=== PATIENT | female | born 1990 | race African-American/Black ===

== ENCOUNTER 2017-11-05 07:44 | Inpatient (IN) | payer OTHER ==
[~2017-11-05] VITALS: Ht 162.6 cm; Wt 92.5 kg
[2017-11-05] MEDS ORDERED: 0.9 % SODIUM CHLORIDE 10 ML DISP.SYRIN. IV PRN ×3 (08:15→19:00)
[2017-11-05] MEDS ORDERED: CITRIC ACID/SODIUM CITRATE 30 ML SOLUTION. PO PRN ×2 (08:15→10:30)
[2017-11-05] MEDS ORDERED: BUTORPHANOL 2 MG/ML VIAL. IV PRN ×2 (08:15)
[2017-11-05] MEDS ORDERED: MAG HYDROX/ALUMINUM HYD/SIMETH 30 ML ORAL.SUSP PO PRN ×4 (08:15→19:00)
[2017-11-05] MEDS ORDERED: TERBUTALINE 1 MG/ML VIAL. SQ PRN (08:15)
[2017-11-05] MEDS ORDERED: OXYTOCIN 30 UNIT/500 ML PREMIX 500 ML IV PRN ×4 (08:15→19:00)
[2017-11-05] MEDS: CLINDAMYCIN 900MG PREMIX 50 ML IV SCH ×2 (08:50→16:50)
[2017-11-05] MEDS: IV RINGERS,LACTATED 1000ML 1,000 ML IV SCH ×3 (08:50→19:54)
[2017-11-05 09:06] LABS: BASO % 1 % (0-3); EOS # 0.1 x10^3/uL (0.0-0.7); EOS % 1 % (0-3); HEMATOCRIT 37.8 % (36.0-47.0); LYMPH # 1.9 x10^3/uL (1.0-4.8); LYMPH % 23 % (24-48); MEAN CORPUSCULAR HEMOGLOBIN 31 pg (25-35); MEAN CORPUSCULAR HGB CONC 34 g/dL (31-37); MEAN CORPUSCULAR VOLUME 89 fL (79-100); MONO # 0.7 x10^3/uL (0.0-1.1); MONO % 8 % (0-9); NEUT # 5.8 x10^3uL (1.8-7.7); NEUT % 68 % (31-73); PLATELET COUNT 259 x10^3/uL (140-400); RED BLOOD COUNT 4.25 x10^6/uL (3.50-5.40); RED CELL DISTRIBUTION WIDTH 15.6 % (11.5-14.5); WHITE BLOOD COUNT 8.5 x10^3/uL (4.0-11.0)
--- NOTE | 2017-11-05 09:18 | PDOC1 ---
OB - History Hx of Present Care: Good Care Ultrasounds: Normal mid trimester US Obstetrical Complications: None Medical Complications: None Past Family/Social History * Past Medical, Surgical, Family and Obstetric Histories reviewed from chart. Rubella: Immune RPR/VDRL: Negative GBS Status: Positive HBsAG: Negative OB - Chief Complaint & HPI Date of Admission: Date of Admission: Nov 05, 2017 at 07:44 Chief Complaint/History : 3 Para: 2 EGA: 39 Reason for admission: induction of labor Admission Nurse Assessment Rev: Yes OB - Admission Exam Physical Exam HEENT: Normal Heart: Regular Rate Lungs: Clear, Equal Abdomen: Gravid, Non tender, Soft Extremities: Edema Reflexes: Normal Cervical Dilatation: 4cm Effacement: 75% Station: -3 Membranes: Intact Heart Rate: Normal Accelerations: Accelerations Present Decelerations: No decelerations Contractions on Admission: < 5 Minutes Apart Intensity: Moderate Text A: 39 wks IOL ACD GBS positive Trich and Chlamydia P: Admit IOL Pitocin and Pen G. Will treat Trich and Chlamydia. EDI WELSH Jr, MD Nov 05, 2017 09:18
[2017-11-05] MEDS ORDERED: ONDANSETRON PF 4 MG/2 ML VIAL. ONE (09:49)
[2017-11-05] MEDS ORDERED: metroNIDAZOLE 500 MG TABLET PO ONE (10:00)
[2017-11-05] MEDS ORDERED: AZITHROMYCIN 250 MG TABLET. PO ONE (10:00)
[2017-11-05] MEDS ORDERED: ONDANSETRON PF 4 MG/2 ML VIAL. IV PRN (10:30)
[2017-11-05] MEDS ORDERED: ACETAMINOPHEN 325 MG TABLET. PO PRN ×3 (10:30→19:00)
[2017-11-05] MEDS: fentaNYL PF VIAL 100 MCG/2 ML VIAL IV PRN ×3 (17:17→19:03)
[2017-11-05] MEDS ORDERED: PHENYLEPH/MINERAL OIL/PETROLAT RECTAL OINTMENT 28GM TUBE. RC PRN ×2 (19:00)
[2017-11-05] MEDS ORDERED: HYDROCORTISONE 1% TOPICAL OINTMENT 30GM TUBE. TP PRN ×2 (19:00)
[2017-11-05] MEDS ORDERED: ZOLPIDEM 5 MG TABLET. PO PRN ×2 (19:00)
[2017-11-05] MEDS ORDERED: IBUPROFEN 800 MG TABLET. PO SCH (19:00)
[2017-11-05] MEDS ORDERED: SIMETHICONE 80 MG TAB.CHEW PO PRN ×2 (19:00)
[2017-11-05] MEDS ORDERED: BENZOCAINE 20% TOPICAL AEROSOL SPRAY 57GM CAN. TP PRN ×2 (19:00)
[2017-11-05] MEDS ORDERED: MAGNESIUM HYDROXIDE 2,400 MG/30 ML ORAL.SUSP. PO PRN ×2 (19:00)
[2017-11-05] MEDS ORDERED: diphenhydrAMINE HCL 25 MG CAPSULE PO PRN ×2 (19:00)
[2017-11-05] MEDS ORDERED: miSOPROStol 200MCG TAB 200 MCG TABLET PR ONE (19:30)
--- NOTE | 2017-11-05 19:45 | PDOC ---
VAGINAL DELIVERY DATE DATE: 11/05/17 TIME: 19:42 : 3 Para: 2 VAGINAL DELIVERY: BREECH VACCUM ASSISTED: No PLACENTA: Spontaneous SEX: Female WEIGHT 7# Nuchal Cord: No Amniotic Fluid: Clear PAIN: Local EPISIOTOMY: No EBL 300cc COMPLICATIONS None CONDITION Stable Signs of Intrauterine Infectio: None Shoulder Dystocia: No DIAGNOSIS MY Delgadillo MD Nov 05, 2017 19:45
[2017-11-05] MEDS: LIDOCAINE 1% PF 30 ML VIAL. INJ PRN (19:54)
[2017-11-05 22:15] VITALS: BP 115/71
[2017-11-06] MEDS: IBUPROFEN 800 MG TABLET. PO PRN ×2 (00:58→15:46)
[2017-11-06 04:30] VITALS: BP 116/79
[2017-11-06] MEDS: IV RINGERS,LACTATED 1000ML 1,000 ML IV SCH (06:09)
[2017-11-06] MEDS: LIDOCAINE 1% PF 30 ML VIAL. INJ PRN (06:41)
[2017-11-06] MEDS ORDERED: FERROUS SULFATE 325 MG TABLET. PO SCH ×2 (08:00)
[2017-11-06 11:30] VITALS: BP 118/78
--- NOTE | 2017-11-06 15:53 | PDOC ---
OB Progress Note Date of Service 11/06/17 Time of Evaluation 1550 Notes Pt. feeling well. No complaints. Lab Laboratory Tests Test 11/05/17 08:40 11/06/17 04:00 White Blood Count 8.5 x10^3/uL (4.0-11.0) Red Blood Count 4.25 x10^6/uL (3.50-5.40) Hemoglobin 13.0 g/dL (12.0-15.5) Hematocrit 37.8 % (36.0-47.0) 37.3 % (36.0-47.0) Mean Corpuscular Volume 89 fL (79-100) Mean Corpuscular Hemoglobin 31 pg (25-35) Mean Corpuscular Hemoglobin Concent 34 g/dL (31-37) Red Cell Distribution Width 15.6 % (11.5-14.5) Platelet Count 259 x10^3/uL (140-400) Neutrophils (%) (Auto) 68 % (31-73) Lymphocytes (%) (Auto) 23 % (24-48) Monocytes (%) (Auto) 8 % (0-9) Eosinophils (%) (Auto) 1 % (0-3) Basophils (%) (Auto) 1 % (0-3) Neutrophils # (Auto) 5.8 x10^3uL (1.8-7.7) Lymphocytes # (Auto) 1.9 x10^3/uL (1.0-4.8) Monocytes # (Auto) 0.7 x10^3/uL (0.0-1.1) Eosinophils # (Auto) 0.1 x10^3/uL (0.0-0.7) Basophils # (Auto) 0.0 x10^3/uL (0.0-0.2) Treponema pallidum Antibody Nonreactive (Nonreactive) Laboratory Tests Test 11/06/17 04:00 Hematocrit 37.3 % (36.0-47.0) Medications Current Medications Sodium Chloride (Normal Saline Flush) 3 ml QSHIFT PRN IV AFTER MEDS AND BLOOD DRAWS; Start 11/05/17 at 08:15; Stop 11/06/17 at 08:56; Status DC Ringer's Solution 1,000 ml @ 125 mls/hr Q8H IV Last administered on 11/05/17at 19:54; Start 11/05/17 at 08:30; Stop 11/06/17 at 06:34; Status DC Butorphanol Tartrate (Stadol) 1 mg PRN Q1HR PRN IV mild to moderate labor pain Last administered on 11/05/17at 15:23; Start 11/05/17 at 08:15; Stop 11/06/17 at 08:56; Status DC Butorphanol Tartrate (Stadol) 2 mg PRN Q1HR PRN IV Severe labor pain; Start at 08:15; Stop 11/06/17 at 08:56; Status DC Al Hydroxide/Mg Hydroxide (Mylanta Plus Xs) 30 ml PRN Q4HRS PRN PO HEARTBURN / GAS; Start 11/05/17 at 08:15; Status Cancel Citric Acid/ Sodium Citrate (Bicitra) 30 ml 1X PRN PRN PO DYSPEPSIA; Start at 08:15; Stop 11/06/17 at 08:14; Status Cancel Terbutaline Sulfate (Brethine) 0.25 mg 1X PRN PRN SQ SEE COMMENTS; Start at 08:15; Stop 11/06/17 at 08:14; Status DC Lidocaine HCl (Xylocaine 1% Pf 30ml Vial) 30 ml 1X PRN PRN INJ SEE COMMENTS Last administered on 11/05/17at 19:54; Start 11/05/17 at 08:15; Stop 11/06/17 at 08:56; Status DC Oxytocin/Sodium Chloride 500 ml @ 0 mls/hr CONT PRN IV SEE I/O RECORD Last administered on 11/05/17at 09:22; Start 11/05/17 at 08:15; Stop 11/06/17 at 08:56 ; Status DC Oxytocin/Sodium Chloride 500 ml @ 0 mls/hr CONT PRN PRN IV Post delivery bleeding; Start 11/05/17 at 08:15; Status Cancel Clindamycin Phosphate 50 ml @ 100 mls/hr Q8H IV Last administered on at 16:50; Start 11/05/17 at 09:00; Stop 11/05/17 at 23:57; Status DC Azithromycin (Zithromax) 1,000 mg 1X ONCE PO Last administered on 11/05/17at 09 :47; Start 11/05/17 at 10:00; Stop 11/06/17 at 08:56; Status DC Metronidazole (Flagyl) 2,000 mg 1X ONCE PO Last administered on 11/05/17at 10: 55; Start 11/05/17 at 10:00; Stop 11/06/17 at 08:56; Status DC Ondansetron HCl (Zofran) 4 mg STK-MED ONCE .ROUTE ; Start 11/05/17 at 09:49; Stop 11/06/17 at 08:56; Status DC Acetaminophen (Tylenol) 650 mg PRN Q6HRS PRN PO MILD PAIN / TEMP; Start at 10:30; Status Cancel Ondansetron HCl (Zofran) 4 mg PRN Q4HRS PRN IV NAUSEA/VOMITING Last administered on 11/05/17at 18:07; Start 11/05/17 at 10:30; Stop 11/06/17 at 08:56 ; Status DC Al Hydroxide/Mg Hydroxide (Mylanta Plus Xs) 30 ml PRN Q4HRS PRN PO HEARTBURN / GAS; Start 11/05/17 at 10:30; Status UNV Citric Acid/ Sodium Citrate (Bicitra) 30 ml 1X PRN PRN PO DYSPEPSIA; Start at 10:30; Stop 11/06/17 at 08:56; Status DC Fentanyl Citrate (Fentanyl 2ml Vial) 100 mcg PRN Q30MIN PRN IV PAIN Last administered on 11/05/17at 19:03; Start 11/05/17 at 17:15; Stop 11/06/17 at 08:56 ; Status DC Sodium Chloride (Normal Saline Flush) 10 ml QSHIFT PRN IV AFTER MEDS AND BLOOD DRAWS; Start 11/05/17 at 19:00; Status UNV Oxytocin/Sodium Chloride 500 ml @ 62.5 mls/hr CONT PRN IV SEE I/O RECORD; Start 11/05/17 at 19:00; Stop 11/06/17 at 02:59; Status UNV Acetaminophen (Tylenol) 650 mg PRN Q6HRS PRN PO MILD PAIN / TEMP; Start at 19:00; Status UNV Ibuprofen (Motrin) 800 mg PRN Q8HRS PRN PO INFLAMMATION Last administered on at 15:46; Start 11/05/17 at 19:00 Magnesium Hydroxide (Milk Of Magnesia) 2,400 mg PRN DAILY PRN PO CONSTIPATION; Start 11/05/17 at 19:00; Status UNV Al Hydroxide/Mg Hydroxide (Mylanta Plus Xs) 30 ml PRN Q4HRS PRN PO HEARTBURN / GAS; Start 11/05/17 at 19:00; Status UNV Simethicone (Gas-X) 80 mg PRN AFTMEALHC PRN PO GAS / BLOATING; Start 11/05/17 at 19:00; Status UNV Diphenhydramine HCl (Benadryl) 25 mg PRN Q6HRS PRN PO ITCHING; Start 11/05/17 at 19:00; Status UNV Benzocaine (Americaine) 1 spray PRN QID PRN TP TOPICAL PAIN; Start 11/05/17 at 19:00; Status UNV Phenyleph/Shark Oil/Min Oil/Petrol (Preparation H) 1 yann PRN QID PRN RC RECTAL PAIN; Start 11/05/17 at 19:00; Status UNV Hydrocortisone (Cortaid) 1 yann PRN QID PRN TP PERINEAL PAIN; Start 11/05/17 at 19:00; Status UNV Ferrous Sulfate (Feosol) 325 mg BIDWMEALS PO ; Start 11/06/17 at 08:00; Status UNV Zolpidem Tartrate (Ambien) 5 mg PRN QHS PRN PO INSOMNIA, MAY REPEAT X1; Start 11/05/17 at 19:00; Status UNV Info (Do NOT chart on this placeholder) 1 ea 1X PRN PRN MC SEE COMMENTS; Start 11/05/17 at 19:00; Status UNV Sodium Chloride (Normal Saline Flush) 10 ml QSHIFT PRN IV AFTER MEDS AND BLOOD DRAWS; Start 11/05/17 at 19:00; Stop 11/06/17 at 08:56; Status DC Oxytocin/Sodium Chloride 500 ml @ 62.5 mls/hr CONT PRN IV SEE I/O RECORD; Start 11/05/17 at 19:00; Stop 11/06/17 at 02:59; Status DC Acetaminophen (Tylenol) 650 mg PRN Q6HRS PRN PO MILD PAIN / TEMP Last administered on 11/06/17at 06:13; Start 11/05/17 at 19:00 Ibuprofen (Motrin) 800 mg PRN Q8HRS PO ; Start 11/05/17 at 19:00; Status UNV Magnesium Hydroxide (Milk Of Magnesia) 2,400 mg PRN DAILY PRN PO CONSTIPATION; Start 11/05/17 at 19:00 Al Hydroxide/Mg Hydroxide (Mylanta Plus Xs) 30 ml PRN Q4HRS PRN PO HEARTBURN / GAS; Start 11/05/17 at 19:00 Simethicone (Gas-X) 80 mg PRN AFTMEALHC PRN PO GAS / BLOATING; Start 11/05/17 at 19:00 Diphenhydramine HCl (Benadryl) 25 mg PRN Q6HRS PRN PO ITCHING; Start 11/05/17 at 19:00 Benzocaine (Americaine) 1 spray PRN QID PRN TP TOPICAL PAIN; Start 11/05/17 at 19:00 Phenyleph/Shark Oil/Min Oil/Petrol (Preparation H) 1 yann PRN QID PRN RC RECTAL PAIN; Start 11/05/17 at 19:00 Hydrocortisone (Cortaid) 1 yann PRN QID PRN TP PERINEAL PAIN; Start 11/05/17 at 19:00 Ferrous Sulfate (Feosol) 325 mg BIDWMEALS PO ; Start 11/06/17 at 08:00; Stop at 08:00; Status DC Zolpidem Tartrate (Ambien) 5 mg PRN QHS PRN PO INSOMNIA, MAY REPEAT X1; Start 11/05/17 at 19:00 Info (Do NOT chart on this placeholder) 1 ea 1X PRN PRN MC SEE COMMENTS; Start 11/05/17 at 19:00 Misoprostol (Cytotec 200mcg Tab) 800 mcg 1X ONCE [place] ; Start 11/05/17 at 19:30; Stop 11/06/17 at 08:56; Status DC Exam Abd: soft, non tender, fundus firm Assessment PPD#1 s/p Plan of Care: Continue current Tx, Mgmt EDI WELSH Jr, MD Nov 06, 2017 15:53
[2017-11-06 19:20] VITALS: BP 117/72
[2017-11-07 02:15] VITALS: BP 131/73
[2017-11-07] MEDS: IBUPROFEN 800 MG TABLET. PO PRN (04:59)
--- NOTE | 2017-11-07 06:47 | PDOC3 ---
OB DISCHARGE SUMMARY DATE OF ADMISSION: 11/05/17 DATE OF DISCHARGE: 11/07/17 REASON FOR ADMISSION: Induction of labor PROCEDURES: Ultrasound INTRAPARTUM PROCEDURES: Spontanous Vag Deliv PROCEDURES: None OPERATIONS: None DISCHARGE DIAGNOSIS: Term Delivered DISCHARGE INFORMATION: Activity, Diet HOSPITAL COURSE unremarkable CONDITION AT DISCHARGE Stable MY VELASCO MD Nov 07, 2017 06:47
[2017-11-07] MEDS ORDERED: NAPR-514 PO (06:49)
[2017-11-07] MEDS ORDERED: HYDR-971 PO (06:49)
[2017-11-07 14:00] VITALS: BP 130/87
--- NOTE | 2017-11-10 16:08 | PATHOLOGY ---
[facility] [place] Accession Number: [id number] . 01 Material submitted: . PLACENTA AND CORD . 01 Clinical history: . Herpes positive G3, P2 EDC: 11/10/17 IUP, -breech Additional history per requisition . 02 Diagnosis: 493 gram term placenta of an estimated 39 weeks gestation with attached membranes and umbilical cord: - Subchorionic cyst of surface with focal hemorrhage. 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 LBQ/11/10/2017 . 02 Comment: There is no evidence of an acute chorioamnionitis. There is no evidence of villitis. (JPM/db; 11/10/17) . 02 Electronically signed: . Spenser Marie MD, Pathologist NPI- [id number] . 01 Gross description: . Received in formalin labeled "Owen Costa, placenta," is an ovoid leroy placenta with attached membranes and umbilical cord. The trimmed placental disc weighs 493 g and measures 18.1 x 15.2 by up to 3.3 cm in greatest dimensions. The membranes are pale borja and edematous in appearance, and the site of the membrane rupture is 7.5 cm from the nearest placental disc edge. The surface is intact and light borja to dusky blue-guo in appearance, displaying arborizing vasculature and diffuse fibrin deposition that encompasses approximately 15% of the total surface. A subamniotic cystic structure is present on the surface, measuring 5.2 x 2.4 x 1.4 cm in greatest dimensions and extending to within 0.1 cm of the nearest placental disc edge. The cystic structure is dusky guo-borja in appearance, and palpation reveals a partially solid interior. Sectioning through the cystic structure reveals an interior cavity containing solidified blood coagulum and colorless, translucent jelly-like material. The trivascular umbilical cord inserts eccentrically, 3.9 cm from the nearest placental disc edge. The cord measures 45 cm in length by up to 1.3 cm in diameter and is pale borja to dusky guo-borja in appearance, displaying moderate helical twisting. The maternal surface cotyledons are intact and complete. Serial sectioning reveals spongy, dark red-brown cut surfaces. A single possible infarct is noted upon sectioning, measuring 1.0 cm in maximum dimension and encompassing approximately 1% of the total placental disc volume. The specimen is submitted representatively as follows: . A1: Umbilical cord and surface vessels, to representatively include surface fibrin deposition A2: Membrane roll and peripheral placental segment A3: [employer] subamniotic cystic structure A4-A5: Full-thickness placental cross section, divided between and maternal surfaces A6: [employer] possible infarct (DAC; ) XDC/XDC . 02 Pathologist provided ICD-10: O43.893, Z37.0, Z3A.39 . 02 CPT . 486100 Performed at: 01 [facility] [address], [place] [id number] MD Ben Bernal MD Phone: [phone] Performed at: 02 [facility] [address] [place], [place] [id number] MD Spenser Marie MD Phone: [phone]
== END 2017-11-07 14:23 | disposition home or self-care (01) | DRG 774 ==
LOC: 3 SO LND 07:44 → 3 NORTH 21:25
PROVIDERS: ADMIT Specialist; ATTEND Specialist
PROC: 10E0XZZ Delivery of Products of Conception, External Approach (ICD-10-PCS; principal; 2017-11-05)
PROC: 3E033VJ Introduction of Other Hormone into Peripheral Vein, Percutaneous Approach (ICD-10-PCS; 2017-11-05)
DX: O99.824 Streptococcus B carrier state complicating childbirth (principal); O98.32 Other infections with a predominantly sexual mode of transmission complicating childbirth; O32.1XX0 Maternal care for breech presentation, not applicable or unspecified; A59.9 Trichomoniasis, unspecified; A56.8 Sexually transmitted chlamydial infection of other sites; Z37.0 Single live birth; Z3A.39 39 weeks gestation of pregnancy
CPT/HCPCS: 36415; 85014; 85025; 86592; 86850; 86900; 86901; 87071; 87075; J2405; J2590; J3010; J3490; J7120; Q0144